=== PATIENT | female | born 1990 | race Two or more races ===

== ENCOUNTER 2024-12-29 21:52 | Emergency (ER) | payer OTHER ==
[~2024-12-29] VITALS: Ht 160 cm; Wt 90.7 kg
[2024-12-29] MEDS ORDERED: FAMOTIDINE/PF 20 MG/2 ML VIAL ONE (23:45)
[2024-12-29] MEDS ORDERED: 0.9 % SODIUM CHLORIDE 1,000 ML IV ONE (23:45)
[2024-12-29] MEDS ORDERED: ONDANSETRON HCL 2 MG/ML VIAL IV ONE (23:45)
[2024-12-29] MEDS ORDERED: ONDANSETRON HCL 2 MG/ML VIAL ONE (23:45)
[2024-12-29] MEDS ORDERED: FAMOtidine 10 MG/ML (4ML VIAL) IV ONE (23:45)
[2024-12-30 00:04] LABS: HEMATOCRIT 37.1 % (36.0-45.00); HEMOGLOBIN 12.9 g/dL (12.0-15.00); MEAN CELL VOLUME 88.7 fL (80.00-100.00); MEAN CORPUSCULAR HEMOGLOBIN 30.9 pg (27.00-32.0); MEAN CORPUSCULAR HGB CONC 34.8 g/dl (32.0-36.0); PLATELET COUNT 201 K/uL (150-450); RED BLOOD COUNT 4.18 M/uL (4.00-6.00); RED CELL DISTRIBUTION WIDTH 13.7 % (11.5-14.5)
[2024-12-30 00:32] LABS: PH,URINE 6.5 (5.0-8.0); URINE APPEARANCE Cloudy; URINE BILIRRUBIN Negative (NEGATIVE); URINE BLOOD Negative; URINE COLOR Yellow; URINE GLUCOSE Negative (NEGATIVE); URINE LEUKOCYTE Trace; URINE NITRATE Negative; URINE PROTEIN Trace (NEGATIVE)
[2024-12-30 00:35] LABS: URINE EPITHELIAL CELLS 16.3 uL (0.0-38.8); URINE RBC 29.3 uL (0.0-20.8)
[2024-12-30 01:02] LABS: URINE BACTERIA > 9821.5 uL (0.0-1933); URINE CAST 0.58 uL (0.0-1.40); URINE KETONE >=160 (NEGATIVE)
[2024-12-30 01:13] LABS: ALBUMIN 3.1 gm/dL (3.4-5.0); BILIRUBIN TOTAL 0.48 mg/dL (0.3-1.2); CALCIUM 8.6 mg/dL (8.5-10.1); CREATININE SERUM 0.66 mg/dL (0.55-1.02); GFR 101.91; GLOBULINA 4.1 G/DL (2.4-3.5); POTASSIUM 4.26 mEq/L (3.5-5.1); TOTAL PROTEIN 7.2 gm/dL (6.4-8.2)
== END 2024-12-30 02:27 | disposition home or self-care (01) ==
LOC: ER 21:55
PROVIDERS: General Practice
DX: O21.8 Other vomiting complicating pregnancy (principal); Z3A.20 20 weeks gestation of pregnancy; Z20.822 Contact with and (suspected) exposure to COVID-19; Z91.013 Allergy to seafood; D68.00 Von Willebrand disease, unspecified

== ENCOUNTER 2025-05-07 05:18 | Inpatient (IN) | payer OTHER ==
[2025-05-07] VITALS (9 sets, daily range): BP systolic 125–150; BP diastolic 60–84
[~2025-05-07] VITALS: Ht 160 cm; Wt 90.7 kg
[2025-05-07 07:10] LABS: BASO % 0.2 % (0.1-1.2); EOS # 0.02 (0.04-0.54); EOS % 0.2 % (0.7-7.0); LYMPH # 2.60 (1.18-3.74); LYMPH % 28.4 % (19.3-53.1); MEAN PLATELET VOLUME 12.00 fl (9.4-12.4); MONO # 0.70 (0.24-0.82); MONO % 7.7 % (4.7-12.5); NEUT # 5.77 (1.56-6.13); NEUT % 63.2 % (34.0-71.1); RED CELL DISTRIBUTION WIDTH 13.4 % (11.6-14.4)
[2025-05-07 07:18] LABS: URINE APPEARANCE Clear; URINE BILIRRUBIN Negative (NEGATIVE); URINE BLOOD Negative; URINE COLOR Yellow; URINE GLUCOSE Negative (NEGATIVE); URINE KETONE Trace (NEGATIVE); URINE LEUKOCYTE Negative; URINE NITRATE Negative; URINE PROTEIN Negative (NEGATIVE); URINE UROBILINOGEN 0.2 E.U./dl
[2025-05-07 07:23] LABS: URINE BACTERIA 807.3 uL (0.0-1933); URINE EPITHELIAL CELLS 8.2 uL (0.0-38.8); URINE RBC 6.8 uL (0.0-20.8); URINE WBC 6.1 uL (0.0-23.2)
[2025-05-07 07:25] LABS: URINE CAST 0.00 uL (0.0-1.40)
[2025-05-07 07:46] LABS: INR < 0.93
[2025-05-07 07:57] LABS: ALT/SGPT 19.0 U/L (12-78); AST/SGOT 16.0 U/L (15-37); BILIRUBIN TOTAL 0.51 mg/dL (0.3-1.2); BUN CREA RATIO 13.0 (7.0-25.0); CREATININE SERUM 0.7 mg/dL (0.55-1.02); GFR 94.68; GLOBULINA 3.7 G/DL (2.4-3.5); GLUCOSE FASTING 85.0 mg/dL (65-100); OSMOLALITY SERUM 277.0 MOSM/KG (275-295)
[2025-05-07] MEDS ORDERED: OXYTOCIN 500 ML IV SCH (08:45)
[2025-05-07] MEDS ORDERED: CHLORHEXIDINE GLUCONATE 120 ML BOTTLE TOP ONE (18:15)
[2025-05-07] MEDS ORDERED: ERYTHROMYCIN BASE OPHT 1GM EACH TUBE OP ONE (18:15)
[2025-05-07] MEDS ORDERED: OXYTOCIN 1,000 ML IV SCH (18:30)
[2025-05-07] MEDS ORDERED: LIDOCAINE HCL 1% 10ML VIAL IJ ONE (18:30)
[2025-05-07] MEDS ORDERED: FAMOTIDINE/PF 20 MG/2 ML VIAL IV ONE (19:00)
[2025-05-07] MEDS ORDERED: ACETAMINOPHEN 500 MG GEL..CAP PO PRN (23:45)
[2025-05-08] VITALS: BP 139/83
[2025-05-08 09:09] VITALS: BP 120/70; O2SAT 100
[2025-05-08 12:20] VITALS: BP 125/71; O2SAT 98
[2025-05-08] MEDS ORDERED: HYDROCORTISONE 2.5% 30 GM TUBE RECTAL SCH (13:00)
[2025-05-08] MEDS ORDERED: MEASLES,MUMPS,RUBELLA VACC/PF 1 VIAL VIAL SUBCUTANEO ONE (14:00)
[2025-05-08 16:15] VITALS: BP 138/82
[2025-05-09 00:22] VITALS: BP 130/80
[2025-05-09 05:26] VITALS: BP 121/71
[2025-05-09 09:11] VITALS: BP 130/80; O2SAT 99
[2025-05-09 17:19] VITALS: BP 137/83
== END 2025-05-09 18:09 | disposition home or self-care (01) | DRG 807 ==
LOC: LDR 05:18 → OB/GYN 05:18
PROVIDERS: ADMIT Specialist; ATTEND Specialist
PROC: 10E0XZZ Delivery of Products of Conception, External Approach (ICD-10-PCS; principal; 2025-05-07)
PROC: 0UQG7ZZ Repair Vagina, Via Natural or Artificial Opening (ICD-10-PCS; 2025-05-07)
PROC: 4A1HXCZ Monitoring of Products of Conception, Cardiac Rate, External Approach (ICD-10-PCS; 2025-05-07)
DX: O71.4 Obstetric high vaginal laceration alone (principal); Z37.0 Single live birth; Z3A.38 38 weeks gestation of pregnancy